=== PATIENT | female | born 1950 | race Caucasian/White ===

== ENCOUNTER 2024-01-27 17:42 | Inpatient (IN) | payer MEDICARE ==
[~2024-01-27] VITALS: Ht 167.6 cm; Wt 113.0 kg
[~2024-01-27 17:42] MED LIST: ALD25T PO; FURO-150 PO; GLIM4TAB7 PO; GLIP-127 PO; LEVO200T43 PO; LISI-222 PO; METF500T PO; PAM25C PO; SYN0.025T PO; ZOC40T PO
[2024-01-27] MEDS: furosemide 10 MG/1 ML 10ml inj IV ONE (18:03)
[2024-01-27] MEDS: furosemide 40mg/4ml inj IV ONE (18:20)
[2024-01-27] MEDS: albuterol 2.5 MG/3 ML nebule NEB PRN (18:21)
[2024-01-27] MEDS: ipratropium 0.5 MG/2.5ML nebule IH ONE (18:21)
[2024-01-27 18:23] VITALS: PULSE 97; RESP 23; O2SAT 97
[2024-01-27] MEDS: nitroGLYCERIN 0.2mg/hour patch TD ONE (18:28)
[2024-01-27] MEDS: aspirin 81mg tab.chew PO ONE (18:29)
[2024-01-27] MEDS: pantoprazole 40 MG vial IV ONE (18:29)
[2024-01-27] MEDS: methylPREDNISolone sod succ 125mg/2ml vial IV ONE (18:30)
[2024-01-27 18:33] VITALS: PULSE 100; RESP 56; O2SAT 97
[2024-01-27 18:35] VITALS: PULSE 97; RESP 27; O2SAT 97
[2024-01-27 18:52] LABS: APTT 29 SECONDS (22-32); D-DIMER 1.39 MG/L FEU (0-0.50)
[2024-01-27 18:53] LABS: INR 0.9 INR
[2024-01-27 18:58] LABS: ALBUMIN 3.1 G/DL (3.4-5.0); ANION GAP 14 (8-16); BLOOD UREA NITROGEN 53 MG/DL (7-18); BUN/CREATININE RATIO 29.6 (10.0-20.0); CALCIUM 9.2 MG/DL (8.5-10.1); CHLORIDE 102 MMOL/L (99-107); CREATININE 1.79 MG/DL (0.40-0.90); DIGOXIN 0.2 NG/ML (0.9-1.9); GLUCOSE 156 MG/DL (70-104); LACTATE DEHYDROGENASE 257 U/L (81-234); LIPASE 131 U/L (16-77); MAGNESIUM 2.5 MG/DL (1.5-2.4); PHOSPHORUS 4.4 MG/DL (2.3-4.5); POTASSIUM 4.6 MMOL/L (3.5-5.1); PRO BRAIN NATRIURETIC PEPTIDE 717 PG/ML (0-450); SODIUM 143 MMOL/L (135-145); TOTAL CARBON DIOXIDE 26.7 MMOL/L (24-32); eCRCL 25 ML/MIN; eGFR 28 ML/MIN
[2024-01-27 19:53] LABS: BASOPHILS # (AUTO) 0.1 X10'3 (0-0.2); BASOPHILS % (AUTO) 0.6 % (0-1); EOSINOPHILS # (AUTO) 0.1 X10'3 (0-0.9); EOSINOPHILS % (AUTO) 0.6 % (0-6); HEMATOCRIT 38.2 % (35.0-45.0); HEMOGLOBIN 12.6 g/dl (12.0-16.0); LYMPHOCYTES # (AUTO) 0.4 X10'3 (1.1-4.8); LYMPHOCYTES % (AUTO) 2.4 % (21-51); MEAN CORPUSCULAR HEMOGLOBIN 31.5 PG (27.0-31.0); MEAN CORPUSCULAR VOLUME 95.2 FL (78-98); MEAN PLATELET VOLUME 7.4 FL (7.4-10.4); MONOCYTES # (AUTO) 0.6 X10'3 (0-0.9); MONOCYTES % (AUTO) 4.3 % (2-12); NEUTROPHILS # (AUTO) 13.7 X10'3 (1.8-7.7); NEUTROPHILS % (AUTO) 92.1 % (42-75); PLATELET COUNT 176 X10'3 (140-440); RED BLOOD COUNT 4.01 X10'6 (4.20-5.60); RED CELL DISTRIBUTION WIDTH 15.1 % (11.5-14.5); WHITE BLOOD COUNT 14.9 X10'3 (4.5-11.0)
[2024-01-27] MEDS ORDERED: potassium Cl 40MEQ/1/2NS 520ml 520 ML IV PRN (20:00)
[2024-01-27] MEDS ORDERED: potassium Cl 20 mEq SR tablet PO PRN ×2 (20:00)
[2024-01-27] MEDS ORDERED: magnesium Cl slow-release 64mg tablet PO PRN (20:00)
[2024-01-27] MEDS ORDERED: acetaminophen 325mg tablet PO PRN (20:00)
[2024-01-27] MEDS ORDERED: magnesium 4gm in 100ml NS 100 ML IV PRN (20:00)
[2024-01-27] MEDS ORDERED: magnesium hydroxide 30ml (MOM) UD suspension PO PRN (20:00)
[2024-01-27] MEDS ORDERED: mag hydrox/Alum hydrox/simeth 30ml oral suspension PO PRN (20:00)
[2024-01-27] MEDS ORDERED: ondansetron/PF 4mg/2ml inj IV PRN (20:00)
[2024-01-27] MEDS ORDERED: magnesium 2GM in 50ml NS 50 ML IV PRN (20:00)
[2024-01-27] MEDS: K and/or MAG REPLACEMENT MC SCH (20:00)
[2024-01-27] MEDS ORDERED: acetaminophen 650mg rectal suppository RC PRN (20:00)
[2024-01-27] MEDS: docusate sod 100mg capsule PO SCH (20:00)
[2024-01-27] MEDS ORDERED: dextrose 50%-water 50ml dispensing syringe IV PRN ×2 (20:05)
[2024-01-27] MEDS ORDERED: DEXTROSE 15 GM of carb/4 tabs (each vial/BOTTLE has 4 tablets) PO PRN ×2 (20:05)
[2024-01-27] MEDS ORDERED: glucagon, human recombinant 1mg kit SUBCUT PRN (20:05)
[2024-01-27] MEDS: MESSAGE TO PHARMACY PO ONE (20:18)
[2024-01-27 20:25] VITALS: PULSE 97; RESP 27; O2SAT 97
[2024-01-27] MEDS: levoFLOXACIN-Levaquin 500mg/D5 100 ML IV SCH (20:40)
[2024-01-27] MEDS: insulin glargine (Lantus) pen - multi-dose SQ SCH (21:00)
[2024-01-27 21:34] LABS: HEMOGLOBIN A1C 7.4 % (4.5-6.2)
[2024-01-28] VITALS (17 sets, daily range): BP systolic 102–139; BP diastolic 43–70; PULSE 83–113; RESP 13–27; TEMP 97.5–98.1; O2SAT 83–96
[2024-01-28] MEDS: ipratropium/albuterol 3ml nebule NEB SCH ×2 (00:01→11:06)
[2024-01-28 04:20] LABS: BASOPHILS % (AUTO) 0.3 % (0-1); EOSINOPHILS % (AUTO) 0 % (0-6); LYMPHOCYTES # (AUTO) 0.4 X10'3 (1.1-4.8); MONOCYTES # (AUTO) 0.1 X10'3 (0-0.9); MONOCYTES % (AUTO) 0.9 % (2-12); NEUTROPHILS # (AUTO) 11.6 X10'3 (1.8-7.7); WHITE BLOOD COUNT 12.1 X10'3 (4.5-11.0)
[2024-01-28 04:25] LABS: ALBUMIN 2.8 G/DL (3.4-5.0); ANION GAP 8 (8-16); BLOOD UREA NITROGEN 60 MG/DL (7-18); BUN/CREATININE RATIO 30.8 (10.0-20.0); CALCIUM 9.2 MG/DL (8.5-10.1); CHLORIDE 101 MMOL/L (99-107); CHOL/HDL RATIO 2.6 (0.00-4.99); CHOLESTEROL 182 MG/DL (0-200); CREATININE 1.95 MG/DL (0.40-0.90); GLUCOSE 265 MG/DL (70-104); HDL CHOLESTEROL 71 MG/DL (35-60); LDL CHOLESTEROL 79 MG/DL (50-100); POTASSIUM 4.8 MMOL/L (3.5-5.1); SODIUM 136 MMOL/L (135-145); THYROID STIMULATING HORMONE 4.29 ulU/ml (0.34-4.50); TOTAL CARBON DIOXIDE 26.6 MMOL/L (24-32); TRIGLYCERIDES 65 MG/DL (20-135); eCRCL 23 ML/MIN; eGFR 25 ML/MIN
[2024-01-28 04:50] LABS: HEMATOCRIT 35.9 % (35.0-45.0); LYMPHOCYTES % (AUTO) 3.1 % (21-51); MEAN CORPUSCULAR HEMOGLOBIN 31.6 PG (27.0-31.0); MEAN CORPUSCULAR HGB CONC 33.6 g/dL (33.0-36.5); MEAN CORPUSCULAR VOLUME 94.2 FL (78-98); NEUTROPHILS % (AUTO) 95.7 % (42-75); PLATELET COUNT 180 X10'3 (140-440)
[2024-01-28] MEDS: enoxaparin 40mg/0.4ml syringe SUBCUT SCH (08:18)
[2024-01-28] MEDS: methylPREDNISolone sod succ 125mg/2ml vial IV SCH (08:22)
[2024-01-28] MEDS ORDERED: ipratropium/albuterol 3ml nebule NEB PRN (08:55)
[2024-01-28] MEDS: furosemide 10 MG/1 ML 10ml inj IV SCH (09:05)
[2024-01-28] MEDS: CefTRIAXone/D5W-Rocephin 1gm 50 ML IV ONE (10:34)
[2024-01-28] MEDS: insulin Lispro (HumaLOG) vial - multi-dose SQ SCH (10:35)
[2024-01-28] MEDS ORDERED: ALLO100T PO (12:18)
[2024-01-28] MEDS ORDERED: ERGO400C PO (12:18)
[2024-01-28] MEDS ORDERED: SEMA2PEN SUBCUT (12:18)
[2024-01-28] MEDS ORDERED: INSU100I8 SQ (12:18)
[2024-01-28] MEDS ORDERED: KRIL1CAP40 PO (12:18)
[2024-01-28] MEDS ORDERED: INSU200I4 SQ (12:18)
[2024-01-28] MEDS ORDERED: UBID50TA3 PO (12:18)
[2024-01-28] MEDS ORDERED: ATEN50TA8 PO (12:18)
[2024-01-28] MEDS ORDERED: ASPI81TA52 PO (12:18)
[2024-01-28 13:31] LABS: ALANINE AMINOTRANSFERASE 77 U/L (12-78); ALBUMIN 2.8 G/DL (3.4-5.0); ALBUMIN/GLOBULIN RATIO 0.7 (1.1-1.5); ALKALINE PHOSPHATASE 361 IU/L (46-116); ANION GAP 7 (8-16); ASPARTATE AMINO TRANSFERASE 43 U/L (10-37); BILIRUBIN,TOTAL 0.5 MG/DL (0.1-1.0); BLOOD UREA NITROGEN 64 MG/DL (7-18); BUN/CREATININE RATIO 29.8 (10.0-20.0); CHLORIDE 102 MMOL/L (99-107); CREATININE 2.15 MG/DL (0.40-0.90); GLUCOSE 342 MG/DL (70-104); LACTATE DEHYDROGENASE 202 U/L (81-234); LIPASE 65 U/L (16-77); MAGNESIUM 2.3 MG/DL (1.5-2.4); SODIUM 137 MMOL/L (135-145); TOTAL CARBON DIOXIDE 27.6 MMOL/L (24-32); TOTAL PROTEIN 6.9 G/DL (6.4-8.2); eCRCL 21 ML/MIN; eGFR 22 ML/MIN
[2024-01-28] MEDS: bumetanide 0.25mg/ml 4ml vial IV SCH (21:11)
[2024-01-28] MEDS: heparin, porcine 5000 units/ml vial SQ SCH (21:15)
[2024-01-28] MEDS: VANCOMYCIN 750MG IV in NS 250 ML IV SCH (22:07)
[2024-01-28] MEDS ORDERED: morphine 2 MG/ML inj. syringe IV PRN (23:40)
[2024-01-28] MEDS ORDERED: HYDROcodone/acetaminophen 5mg/325mg tablet PO PRN (23:40)
[2024-01-29] VITALS (16 sets, daily range): BP systolic 123–142; BP diastolic 65–78; PULSE 94–107; RESP 16–24; TEMP 97.4–98.4; O2SAT 91–98
[2024-01-29] MEDS ORDERED: furosemide 10 MG/1 ML 10ml inj IV SCH (08:00)
[2024-01-29 08:29] LABS: BASOPHILS % (AUTO) 0.2 % (0-1); EOSINOPHILS % (AUTO) 0 % (0-6); HEMATOCRIT 34.3 % (35.0-45.0); HEMOGLOBIN 11.4 g/dl (12.0-16.0); LYMPHOCYTES # (AUTO) 0.6 X10'3 (1.1-4.8); LYMPHOCYTES % (AUTO) 2.9 % (21-51); MEAN CORPUSCULAR HEMOGLOBIN 31.7 PG (27.0-31.0); MEAN CORPUSCULAR HGB CONC 33.2 g/dL (33.0-36.5); MEAN CORPUSCULAR VOLUME 95.4 FL (78-98); MEAN PLATELET VOLUME 8.2 FL (7.4-10.4); MONOCYTES # (AUTO) 0.7 X10'3 (0-0.9); MONOCYTES % (AUTO) 3.5 % (2-12); NEUTROPHILS # (AUTO) 18.1 X10'3 (1.8-7.7); NEUTROPHILS % (AUTO) 93.4 % (42-75); PLATELET COUNT 203 X10'3 (140-440); RED BLOOD COUNT 3.59 X10'6 (4.20-5.60); WHITE BLOOD COUNT 19.4 X10'3 (4.5-11.0)
[2024-01-29 08:39] LABS: ALANINE AMINOTRANSFERASE 66 U/L (12-78); ALBUMIN 2.8 G/DL (3.4-5.0); ALBUMIN/GLOBULIN RATIO 0.7 (1.1-1.5); ALKALINE PHOSPHATASE 288 IU/L (46-116); ANION GAP 11 (8-16); ASPARTATE AMINO TRANSFERASE 33 U/L (10-37); BILIRUBIN,TOTAL 0.5 MG/DL (0.1-1.0); BLOOD UREA NITROGEN 68 MG/DL (7-18); BUN/CREATININE RATIO 30.5 (10.0-20.0); CALCIUM 9.1 MG/DL (8.5-10.1); CHLORIDE 103 MMOL/L (99-107); CREATININE 2.23 MG/DL (0.40-0.90); GLUCOSE 348 MG/DL (70-104); POTASSIUM 5.5 MMOL/L (3.5-5.1); SODIUM 138 MMOL/L (135-145); TOTAL CARBON DIOXIDE 23.9 MMOL/L (24-32); TOTAL PROTEIN 6.9 G/DL (6.4-8.2); eCRCL 20 ML/MIN; eGFR 21 ML/MIN
[2024-01-29] MEDS: CefTRIAXone/D5W-Rocephin 1gm 50 ML IV SCH (09:29)
[2024-01-29] MEDS: nortriptyline 25mg capsule PO SCH (20:45)
[2024-01-29] MEDS: temazepam 15mg capsule PO PRN (23:01)
[2024-01-30] VITALS (17 sets, daily range): BP systolic 105–155; BP diastolic 73–82; PULSE 85–114; RESP 16–24; TEMP 97.3–98.3; O2SAT 3–99
[2024-01-30 00:23] LABS: BILIRUBIN,URINE NEGATIVE (Neg); COLOR,URINE STRAW (Yellow); GLUCOSE, URINE NEGATIVE (Neg); KETONES,URINE NEGATIVE (Neg); LEUKOCYTE ESTERASE ,URINE NEGATIVE (Neg); NITRITES, URINE NEGATIVE (Neg); OCCULT BLOOD,URINE TRACE-INTACT (Neg); PH,URINE 5.5 (4.8-8.0); PROTEIN,URINE NEGATIVE (Neg); UROBILINOGEN,URINE 0.2 E.U/dL (0.2-1.0)
[2024-01-30 00:24] LABS: UA COLLECTION TYPE NON-SPECIFIED
[2024-01-30 00:31] LABS: CLARITY,URINE CLEAR (Clear)
[2024-01-30 00:33] LABS: BACTERIA,URINE NONE SEEN /HPF (Neg); MUCUS STRANDS FEW /LPF (Neg); RBC,URINE 0-2 /HPF (0-2); SQUAMOUS EPITHELIAL CELL,UR FEW /LPF (FEW); WBC,URINE NONE SEEN /HPF (0-4)
[2024-01-30 00:37] LABS: TOTAL PROTEIN,URINE RANDOM 7.1 MG/DL
[2024-01-30 01:02] LABS: UA EOSINOPHILS NO EOS /HPF
[2024-01-30 06:44] LABS: BASOPHILS # (AUTO) 0.1 X10'3 (0-0.2); BASOPHILS % (AUTO) 0.5 % (0-1); EOSINOPHILS % (AUTO) 0 % (0-6); HEMATOCRIT 35.9 % (35.0-45.0); HEMOGLOBIN 11.7 g/dl (12.0-16.0); LYMPHOCYTES # (AUTO) 0.7 X10'3 (1.1-4.8); LYMPHOCYTES % (AUTO) 4.7 % (21-51); MEAN CORPUSCULAR HEMOGLOBIN 31.4 PG (27.0-31.0); MEAN CORPUSCULAR HGB CONC 32.7 g/dL (33.0-36.5); MEAN PLATELET VOLUME 7.9 FL (7.4-10.4); MONOCYTES # (AUTO) 0.6 X10'3 (0-0.9); MONOCYTES % (AUTO) 4.3 % (2-12); NEUTROPHILS # (AUTO) 12.8 X10'3 (1.8-7.7); NEUTROPHILS % (AUTO) 90.5 % (42-75); PLATELET COUNT 216 X10'3 (140-440); RED BLOOD COUNT 3.74 X10'6 (4.20-5.60); RED CELL DISTRIBUTION WIDTH 14.9 % (11.5-14.5); WHITE BLOOD COUNT 14.1 X10'3 (4.5-11.0)
[2024-01-30 07:45] LABS: ALANINE AMINOTRANSFERASE 65 U/L (12-78); ALBUMIN 2.9 G/DL (3.4-5.0); ALBUMIN/GLOBULIN RATIO 0.7 (1.1-1.5); ALKALINE PHOSPHATASE 294 IU/L (46-116); ANION GAP 11 (8-16); ASPARTATE AMINO TRANSFERASE 37 U/L (10-37); BILIRUBIN,TOTAL 0.5 MG/DL (0.1-1.0); BLOOD UREA NITROGEN 72 MG/DL (7-18); BUN/CREATININE RATIO 31.7 (10.0-20.0); CALCIUM 8.8 MG/DL (8.5-10.1); CHLORIDE 104 MMOL/L (99-107); CREATININE 2.27 MG/DL (0.40-0.90); GLUCOSE 300 MG/DL (70-104); POTASSIUM 5.2 MMOL/L (3.5-5.1); SODIUM 141 MMOL/L (135-145); TOTAL CARBON DIOXIDE 26.1 MMOL/L (24-32); TOTAL PROTEIN 7.2 G/DL (6.4-8.2); eCRCL 20 ML/MIN; eGFR 21 ML/MIN
[2024-01-30 08:14] LABS: ABG BASE EXCESS -0.7 mmol/L (-2.0-2.0); ABG HCO3 24.6 mmol/L (22.0-26.0); ABG PCO2 (T) 42.7 mmHg (32.0-45.0); ABG PH (T) 7.378 (7.350-7.450); ABG PO2 (T) 93.2 mmHg (75.0-100.0); ALLEN'S TEST POSITIVE; FCOHb 0.7 % (0.0-3.9); FMetHb 0.2 % (0.0-1.5); FO2Hb 96.1 % (94-97); MODE MASK - BIPAP; PATIENT TEMPERATURE 36.8; RESPIRATORY RATE 10 b/min; TOTAL HEMOGLOBIN 13.5 G/dl (12.0-16.0)
[2024-01-30 08:25] LABS: ABG BASE EXCESS -3.8 mmol/L (-2.0-2.0); ABG HCO3 23.8 mmol/L (22.0-26.0); ABG OXYGEN SATURATION 94.6 % (94-97); ABG PCO2 (T) 53.5 mmHg (32.0-45.0); ABG PH (T) 7.266 (7.350-7.450); ABG PO2 (T) 82.5 mmHg (75.0-100.0); ALLEN'S TEST POSITIVE; FHHb 5.3 % (0.0-5.0); FLOW 8 L/min; FMetHb 0.2 % (0.0-1.5); FO2Hb 93.5 % (94-97); MODE MASK - NRB; TOTAL HEMOGLOBIN 13.9 G/dl (12.0-16.0)
[2024-01-31] VITALS (16 sets, daily range): BP systolic 129–162; BP diastolic 69–87; PULSE 85–114; RESP 16–24; TEMP 97–98.2; O2SAT 95–100
[2024-01-31 07:58] LABS: BASOPHILS % (AUTO) 0.2 % (0-1); EOSINOPHILS % (AUTO) 0 % (0-6); HEMATOCRIT 34.9 % (35.0-45.0); HEMOGLOBIN 11.8 g/dl (12.0-16.0); LYMPHOCYTES # (AUTO) 0.4 X10'3 (1.1-4.8); LYMPHOCYTES % (AUTO) 3.8 % (21-51); MEAN CORPUSCULAR HEMOGLOBIN 32.2 PG (27.0-31.0); MEAN CORPUSCULAR HGB CONC 33.7 g/dL (33.0-36.5); MEAN CORPUSCULAR VOLUME 95.6 FL (78-98); MEAN PLATELET VOLUME 8.3 FL (7.4-10.4); MONOCYTES # (AUTO) 0.3 X10'3 (0-0.9); MONOCYTES % (AUTO) 2.4 % (2-12); NEUTROPHILS # (AUTO) 9.9 X10'3 (1.8-7.7); NEUTROPHILS % (AUTO) 93.6 % (42-75); PLATELET COUNT 183 X10'3 (140-440); RED BLOOD COUNT 3.65 X10'6 (4.20-5.60); RED CELL DISTRIBUTION WIDTH 15.1 % (11.5-14.5); WHITE BLOOD COUNT 10.6 X10'3 (4.5-11.0)
[2024-01-31 08:47] LABS: ALANINE AMINOTRANSFERASE 74 U/L (12-78); ALBUMIN 2.7 G/DL (3.4-5.0); ALBUMIN/GLOBULIN RATIO 0.7 (1.1-1.5); ALKALINE PHOSPHATASE 262 IU/L (46-116); ANION GAP 10 (8-16); ASPARTATE AMINO TRANSFERASE 46 U/L (10-37); BILIRUBIN,TOTAL 0.4 MG/DL (0.1-1.0); BLOOD UREA NITROGEN 75 MG/DL (7-18); BUN/CREATININE RATIO 35.5 (10.0-20.0); CALCIUM 8.9 MG/DL (8.5-10.1); CHLORIDE 105 MMOL/L (99-107); CREATININE 2.11 MG/DL (0.40-0.90); GLUCOSE 289 MG/DL (70-104); POTASSIUM 5.7 MMOL/L (3.5-5.1); SODIUM 142 MMOL/L (135-145); TOTAL CARBON DIOXIDE 27.5 MMOL/L (24-32); TOTAL PROTEIN 6.7 G/DL (6.4-8.2); eCRCL 22 ML/MIN; eGFR 23 ML/MIN
[2024-01-31] MEDS ORDERED: FLUT1BLS4 INH (13:27)
[2024-01-31] MEDS ORDERED: AZIT500T9 PO (13:27)
[2024-01-31] MEDS ORDERED: METH4TAB81 PO (13:27)
[2024-01-31] MEDS ORDERED: BUME1TAB8 PO (13:27)
[2024-01-31] MEDS ORDERED: ALBU18HF2 IH (13:27)
[2024-01-31] MEDS: VANCOMYCIN LEVEL IJ ONE (20:44)
[2024-02-01] VITALS (8 sets, daily range): BP systolic 119–139; BP diastolic 61–87; PULSE 81–114; RESP 14–22; TEMP 97.5–98.6; O2SAT 92–98
[2024-02-01 06:34] LABS: BASOPHILS % (AUTO) 0.1 % (0-1); EOSINOPHILS % (AUTO) 0 % (0-6); HEMATOCRIT 34.7 % (35.0-45.0); HEMOGLOBIN 11.5 g/dl (12.0-16.0); LYMPHOCYTES # (AUTO) 0.4 X10'3 (1.1-4.8); LYMPHOCYTES % (AUTO) 3.8 % (21-51); MEAN CORPUSCULAR HEMOGLOBIN 31.6 PG (27.0-31.0); MEAN CORPUSCULAR HGB CONC 33.2 g/dL (33.0-36.5); MEAN CORPUSCULAR VOLUME 95.2 FL (78-98); MEAN PLATELET VOLUME 8.1 FL (7.4-10.4); MONOCYTES # (AUTO) 0.3 X10'3 (0-0.9); MONOCYTES % (AUTO) 3.4 % (2-12); NEUTROPHILS # (AUTO) 9.5 X10'3 (1.8-7.7); NEUTROPHILS % (AUTO) 92.7 % (42-75); PLATELET COUNT 186 X10'3 (140-440); RED BLOOD COUNT 3.64 X10'6 (4.20-5.60); RED CELL DISTRIBUTION WIDTH 14.8 % (11.5-14.5); WHITE BLOOD COUNT 10.2 X10'3 (4.5-11.0)
[2024-02-01 07:12] LABS: ALANINE AMINOTRANSFERASE 186 U/L (12-78); ALBUMIN 2.7 G/DL (3.4-5.0); ALBUMIN/GLOBULIN RATIO 0.7 (1.1-1.5); ALKALINE PHOSPHATASE 259 IU/L (46-116); ANION GAP 9 (8-16); ASPARTATE AMINO TRANSFERASE 136 U/L (10-37); BILIRUBIN,TOTAL 0.4 MG/DL (0.1-1.0); BLOOD UREA NITROGEN 69 MG/DL (7-18); BUN/CREATININE RATIO 37.9 (10.0-20.0); CALCIUM 8.7 MG/DL (8.5-10.1); CHLORIDE 103 MMOL/L (99-107); CREATININE 1.82 MG/DL (0.40-0.90); GLUCOSE 335 MG/DL (70-104); POTASSIUM 5.1 MMOL/L (3.5-5.1); SODIUM 139 MMOL/L (135-145); TOTAL CARBON DIOXIDE 27.1 MMOL/L (24-32); TOTAL PROTEIN 6.5 G/DL (6.4-8.2); eCRCL 25 ML/MIN; eGFR 27 ML/MIN
[2024-02-01] MEDS: methylPREDNISolone sod succ/PF 40mg inj. IV SCH (08:39)
[2024-02-01] MEDS ORDERED: vancomycin/NS 1 GM ADD-VANTAGE 250 ML IV SCH (21:00)
[2024-02-04] MEDS ORDERED: VANCOMYCIN LEVEL IV ONE (20:30)
== END 2024-02-01 17:50 | disposition home health service (06) | DRG 602 ==
LOC: ER 17:43 → ED HOLD 20:04 → PCU 3S 01-28 05:30
PROVIDERS: ADMIT Surgery Surgical Critical Care; ATTEND Family Medicine
PROC: 5A09357 Assistance with Respiratory Ventilation, Less than 24 Consecutive Hours, Continuous Positive Airway Pressure (ICD-10-PCS; principal; 2024-01-27)
PROC: CB1YYZZ Planar Nuclear Medicine Imaging of Respiratory System using Other Radionuclide (ICD-10-PCS; 2024-01-28)
DX: L03.115 Cellulitis of right lower limb (principal); I50.33 Acute on chronic diastolic (congestive) heart failure; J96.01 Acute respiratory failure with hypoxia; N17.0 Acute kidney failure with tubular necrosis; J96.02 Acute respiratory failure with hypercapnia; I13.0 Hypertensive heart and chronic kidney disease with heart failure and stage 1 through stage 4 chronic kidney disease, or unspecified chronic kidney disease; J44.1 Chronic obstructive pulmonary disease with (acute) exacerbation; E87.29 Other acidosis; J44.0 Chronic obstructive pulmonary disease with (acute) lower respiratory infection; Z20.822 Contact with and (suspected) exposure to COVID-19; Z96.652 Presence of left artificial knee joint; E11.22 Type 2 diabetes mellitus with diabetic chronic kidney disease; E78.5 Hyperlipidemia, unspecified; E66.01 Morbid (severe) obesity due to excess calories; J20.9 Acute bronchitis, unspecified; Z68.39 Body mass index [BMI] 39.0-39.9, adult; Z79.84 Long term (current) use of oral hypoglycemic drugs; Z79.899 Other long term (current) drug therapy; Z87.891 Personal history of nicotine dependence; Z92.21 Personal history of antineoplastic chemotherapy; Z85.43 Personal history of malignant neoplasm of ovary; Z85.3 Personal history of malignant neoplasm of breast
CPT/HCPCS: 36415; 36600; 71045; 71250; 76770; 78582; 80048; 80053; 80061; 80162; 80202; 81001; 82570; 82803; 82948; 83036; 83605; 83615; 83690; 83735; 83880; 83935; 84100; 84133; 84156; 84300; 84443; 84484; 85018; 85025; 85379; 85610; 85730; 87040; 87081; 87207; 87502; 87503; 87811; 93005; 93306; 93970; 94640; 94660; 94760; 96374; 96375; 97116; 97161; 97530; 99285; A4615; A6212; A6213; A6222; A6223; A6258; A6446; A6449; A9539; A9540; C9113; G0378; J0696; J1644; J1650; J1815; J1940; J1956; J2920; J2930; J3370; J3490; J7040; J7050

== ENCOUNTER 2024-06-09 17:22 | Inpatient (IN) | payer MEDICARE ==
[~2024-06-09] VITALS: Ht 167.6 cm; Wt 108.0 kg
[~2024-06-09 17:22] MED LIST changes: -ALD25T PO; +ALLO100T PO; +ASPI81TA52 PO; +ATEN50TA8 PO; +ERGO400C PO; +FURO-149 PO; -FURO-150 PO; -GLIM4TAB7 PO; -GLIP-127 PO; +INSU100I8 SQ; +INSU200I4 SQ; +KRIL1CAP40 PO; -LEVO200T43 PO; -METF500T PO; +SEMA2PEN SUBCUT; +UBID50TA3 PO
[2024-06-09 18:40] LABS: ALBUMIN 3.5 G/DL (3.4-5.0); ANION GAP 5 (8-16); BLOOD UREA NITROGEN 50 MG/DL (7-18); BUN/CREATININE RATIO 28.6 (10.0-20.0); CALCIUM 9.7 MG/DL (8.5-10.1); CHLORIDE 97 MMOL/L (99-107); CREATININE 1.75 MG/DL (0.40-0.90); GLUCOSE 131 MG/DL (70-104); PRO BRAIN NATRIURETIC PEPTIDE 764 PG/ML (0-450); SODIUM 137 MMOL/L (135-145); TOTAL CARBON DIOXIDE 34.8 MMOL/L (24-32); eCRCL 26 ML/MIN; eGFR 28 ML/MIN
[2024-06-09 18:41] LABS: BASOPHILS % (AUTO) 0 % (0-1); EOSINOPHILS # (AUTO) 0.4 X10'3 (0-0.9); EOSINOPHILS % (AUTO) 1.7 % (0-6); HEMATOCRIT 34.9 % (35.0-45.0); HEMOGLOBIN 11.3 g/dl (12.0-16.0); LYMPHOCYTES # (AUTO) 0.4 X10'3 (1.1-4.8); LYMPHOCYTES % (AUTO) 1.4 % (21-51); MEAN CORPUSCULAR HEMOGLOBIN 29.3 PG (27.0-31.0); MEAN CORPUSCULAR HGB CONC 32.3 g/dL (33.0-36.5); MEAN CORPUSCULAR VOLUME 90.7 FL (78-98); MEAN PLATELET VOLUME 7.5 FL (7.4-10.4); MONOCYTES # (AUTO) 0.5 X10'3 (0-0.9); MONOCYTES % (AUTO) 1.9 % (2-12); NEUTROPHILS # (AUTO) 23.6 X10'3 (1.8-7.7); PLATELET COUNT 151 X10'3 (140-440); RED BLOOD COUNT 3.85 X10'6 (4.20-5.60); RED CELL DISTRIBUTION WIDTH 14.1 % (11.5-14.5); WHITE BLOOD COUNT 24.8 X10'3 (4.5-11.0)
[2024-06-09 18:46] LABS: POTASSIUM 4.9 MMOL/L (3.5-5.1)
[2024-06-09] MEDS: furosemide 40mg/4ml inj IV ONE (18:49)
[2024-06-09] MEDS: furosemide 10 MG/1 ML 10ml inj IV ONE (18:50)
[2024-06-09 18:55] LABS: ABG BASE EXCESS 7.4 mmol/L (-2.0-2.0); ABG HCO3 34.5 mmol/L (22.0-26.0); ABG OXYGEN SATURATION 87.2 % (94-97); ABG PCO2 (T) 60.9 mmHg (32.0-45.0); ABG PH (T) 7.371 (7.350-7.450); ABG PO2 (T) 54.4 mmHg (75.0-100.0); ALLEN'S TEST Modified; FCOHb 0.5 % (0.0-3.9); FHHb 12.7 % (0.0-5.0); FLOW 4 L/min; FMetHb 0.3 % (0.0-1.5); FO2Hb 86.5 % (94-97); MODE NASAL CANNULA; TOTAL HEMOGLOBIN 12.3 G/dl (12.0-16.0)
[2024-06-09 19:00] LABS: PLATELET ESTIMATE NORMAL; TOTAL CELLS COUNTED 100
[2024-06-09] MEDS: CefTRIAXone/D5W-Rocephin 1gm 50 ML IV ONE (19:28)
[2024-06-09] MEDS ORDERED: FURO40TA4 PO (19:51)
[2024-06-09] MEDS ORDERED: NORT25CA PO (19:51)
[2024-06-09] MEDS ORDERED: LISI2.5T14 PO (19:51)
[2024-06-09] MEDS: azithromycin/NS 500mg/250ml 250 ML IV ONE (19:53)
[2024-06-09] MEDS ORDERED: potassium Cl 40MEQ/1/2NS 520ml 520 ML IV PRN (20:15)
[2024-06-09] MEDS ORDERED: mag hydrox/Alum hydrox/simeth 30ml oral suspension PO PRN (20:15)
[2024-06-09] MEDS ORDERED: ondansetron/PF 4mg/2ml inj IV PRN (20:15)
[2024-06-09] MEDS ORDERED: magnesium Cl slow-release 64mg tablet PO PRN (20:15)
[2024-06-09] MEDS ORDERED: magnesium sulf-water 4G/100mL 100 ML IV PRN (20:15)
[2024-06-09] MEDS ORDERED: potassium Cl 20 mEq SR tablet PO PRN ×2 (20:15)
[2024-06-09] MEDS ORDERED: acetaminophen 325mg tablet PO PRN (20:15)
[2024-06-09] MEDS: INSULIN LISPRO 100 UNIT/ML INSULN.PEN MULTI-DOSE SQ SCH (21:00)
[2024-06-09 21:04] VITALS: PULSE 81; RESP 18; O2SAT 0
[2024-06-09] MEDS: ipratropium/albuterol 3ml nebule NEB PRN (21:06)
[2024-06-09 21:07] VITALS: PULSE 81; RESP 18; O2SAT 96
[2024-06-09 21:13] VITALS: PULSE 89; RESP 16
[2024-06-09] MEDS: nortriptyline 25mg capsule PO SCH (21:26)
[2024-06-09] MEDS: simvastatin 20mg tablet PO SCH (21:26)
[2024-06-09 23:00] LABS: C-REACTIVE PROTEIN 2.85 MG/DL (0.0-0.5)
[2024-06-09] MEDS ORDERED: dextrose 50%-water 50ml dispensing syringe IV PRN ×2 (23:05)
[2024-06-09] MEDS ORDERED: DEXTROSE 15 GM of carb/4 tabs (each vial/BOTTLE has 4 tablets) PO PRN (23:05)
[2024-06-10] VITALS (12 sets, daily range): BP systolic 98–113; BP diastolic 44–58; PULSE 64–78; RESP 14–20; TEMP 97.3–98.4; O2SAT 93–99
[2024-06-10] MEDS: piperacillin/tazo 3.375gm/50ml 50 ML IV SCH (00:56)
[2024-06-10 03:25] LABS: BASOPHILS % (AUTO) 0.1 % (0-1); EOSINOPHILS % (AUTO) 0.1 % (0-6); HEMATOCRIT 29.3 % (35.0-45.0); HEMOGLOBIN 9.3 g/dl (12.0-16.0); LYMPHOCYTES # (AUTO) 0.5 X10'3 (1.1-4.8); LYMPHOCYTES % (AUTO) 1.7 % (21-51); MEAN CORPUSCULAR HEMOGLOBIN 28.8 PG (27.0-31.0); MEAN CORPUSCULAR HGB CONC 31.7 g/dL (33.0-36.5); MEAN CORPUSCULAR VOLUME 90.9 FL (78-98); MEAN PLATELET VOLUME 7.9 FL (7.4-10.4); MONOCYTES # (AUTO) 0.8 X10'3 (0-0.9); MONOCYTES % (AUTO) 3.2 % (2-12); NEUTROPHILS # (AUTO) 25.3 X10'3 (1.8-7.7); NEUTROPHILS % (AUTO) 94.9 % (42-75); PLATELET COUNT 143 X10'3 (140-440); RED BLOOD COUNT 3.22 X10'6 (4.20-5.60); RED CELL DISTRIBUTION WIDTH 14.5 % (11.5-14.5)
[2024-06-10 03:31] LABS: WHITE BLOOD COUNT 26.6 X10'3 (4.5-11.0)
[2024-06-10 03:41] LABS: ALANINE AMINOTRANSFERASE 48 U/L (12-78); ALBUMIN 2.7 G/DL (3.4-5.0); ALBUMIN/GLOBULIN RATIO 0.7 (1.1-1.5); ALKALINE PHOSPHATASE 246 IU/L (46-116); ANION GAP 10 (8-16); ASPARTATE AMINO TRANSFERASE 55 U/L (10-37); BILIRUBIN,TOTAL 0.5 MG/DL (0.1-1.0); BLOOD UREA NITROGEN 51 MG/DL (7-18); BUN/CREATININE RATIO 23.1 (10.0-20.0); CALCIUM 8.6 MG/DL (8.5-10.1); CHLORIDE 92 MMOL/L (99-107); CREATININE 2.21 MG/DL (0.40-0.90); GLUCOSE 228 MG/DL (70-104); MAGNESIUM 1.8 MG/DL (1.5-2.4); POTASSIUM 4.9 MMOL/L (3.5-5.1); SODIUM 135 MMOL/L (135-145); TOTAL CARBON DIOXIDE 33.5 MMOL/L (24-32); TOTAL PROTEIN 6.7 G/DL (6.4-8.2); eCRCL 21 ML/MIN; eGFR 22 ML/MIN
[2024-06-10 03:51] LABS: TOTAL CELLS COUNTED 100
[2024-06-10 03:52] LABS: PLATELET ESTIMATE NORMAL
[2024-06-10] MEDS: normal saline 500ml IV soln 500 ML IV ONE (04:45)
[2024-06-10] MEDS: normal saline 1000ml 1,000 ML IV SCH (04:49)
[2024-06-10 05:33] LABS: BILIRUBIN,URINE NEGATIVE (Neg); CLARITY,URINE CLOUDY (Clear); COLOR,URINE YELLOW (Yellow); GLUCOSE, URINE NEGATIVE (Neg); KETONES,URINE NEGATIVE (Neg); LEUKOCYTE ESTERASE ,URINE MODERATE (Neg); NITRITES, URINE NEGATIVE (Neg); OCCULT BLOOD,URINE TRACE-INTACT (Neg); PH,URINE 5.5 (4.8-8.0); PROTEIN,URINE NEGATIVE (Neg); UROBILINOGEN,URINE 0.2 E.U/dL (0.2-1.0)
[2024-06-10 05:45] LABS: BACTERIA,URINE 1+ /HPF (Neg); MUCUS STRANDS NONE SEEN /LPF (Neg); RBC,URINE 0-2 /HPF (0-2); SQUAMOUS EPITHELIAL CELL,UR MANY /LPF (FEW); TRANSITIONAL EPI CELLS,URINE MODERATE /HPF; UA COLLECTION TYPE CLN CATCH MIDSTREAM; WBC CLUMPS,URINE MODERATE /HPF (NEGATIVE); WBC,URINE TNTC /HPF (0-4)
[2024-06-10] MEDS ORDERED: INSULIN LISPRO 100 UNIT/ML INSULN.PEN MULTI-DOSE SQ SCH (07:00)
[2024-06-10] MEDS ORDERED: nortriptyline 10mg capsule PO SCH (08:00)
[2024-06-10] MEDS ORDERED: furosemide 40mg tablet PO SCH (08:00)
[2024-06-10] MEDS ORDERED: furosemide 40mg/4ml inj IV SCH (08:00)
[2024-06-10] MEDS ORDERED: albuterol 2.5 MG/3 ML nebule NEB PRN (08:35)
[2024-06-10] MEDS: aspirin 81mg, enteric-coated 1 TAB TABLET.DR PO SCH (08:51)
[2024-06-10] MEDS: atenolol 50mg tablet PO SCH (08:51)
[2024-06-10] MEDS: azithromycin 250mg tablet PO SCH (08:52)
[2024-06-10] MEDS: levoTHYROXINE 25mcg tablet PO SCH (08:52)
[2024-06-10] MEDS: lisinopril 2.5mg tablet PO SCH (08:52)
[2024-06-10] MEDS: guaiFENesin ER 600mg tablet PO SCH (08:54)
[2024-06-10] MEDS: allopurinol 100mg tablet PO SCH (08:55)
[2024-06-10] MEDS: docusate sod 100mg capsule PO SCH (08:55)
[2024-06-10] MEDS: heparin, porcine 5000 units/ml vial SQ SCH (08:57)
[2024-06-10] MEDS: insulin glargine (Lantus) pen - multi-dose SQ SCH (09:20)
[2024-06-10] MEDS: ipratropium/albuterol 3ml nebule NEB SCH (10:31)
[2024-06-10] MEDS ORDERED: allopurinol 100mg tablet PO SCH (11:48)
[2024-06-10] MEDS: INSULIN LISPRO 100 UNIT/ML INSULN.PEN MULTI-DOSE SQ SCH (12:59)
[2024-06-10] MEDS: budesonide 0.5mg/2ml UD nebule IH SCH (18:58)
[2024-06-10] MEDS: HYDROcodone/acetaminophen 5mg/325mg tablet PO PRN (20:37)
[2024-06-10] MEDS: Melatonin 3mg tablet PO PRN (23:35)
[2024-06-11] VITALS (17 sets, daily range): BP systolic 97–117; BP diastolic 44–58; PULSE 68–82; RESP 15–20; TEMP 98.1–98.4; O2SAT 90–97
[2024-06-11 07:32] LABS: BASOPHILS # (AUTO) 0.1 X10'3 (0-0.2); BASOPHILS % (AUTO) 0.4 % (0-1); EOSINOPHILS # (AUTO) 0.3 X10'3 (0-0.9); EOSINOPHILS % (AUTO) 2.5 % (0-6); HEMATOCRIT 28.8 % (35.0-45.0); HEMOGLOBIN 9.3 g/dl (12.0-16.0); LYMPHOCYTES # (AUTO) 0.8 X10'3 (1.1-4.8); LYMPHOCYTES % (AUTO) 5.8 % (21-51); MEAN CORPUSCULAR HEMOGLOBIN 29.7 PG (27.0-31.0); MEAN CORPUSCULAR HGB CONC 32.3 g/dL (33.0-36.5); MEAN CORPUSCULAR VOLUME 91.8 FL (78-98); MEAN PLATELET VOLUME 8.2 FL (7.4-10.4); MONOCYTES # (AUTO) 1.1 X10'3 (0-0.9); MONOCYTES % (AUTO) 8.2 % (2-12); NEUTROPHILS # (AUTO) 11.1 X10'3 (1.8-7.7); NEUTROPHILS % (AUTO) 83.1 % (42-75); PLATELET COUNT 132 X10'3 (140-440); RED BLOOD COUNT 3.14 X10'6 (4.20-5.60); RED CELL DISTRIBUTION WIDTH 14.9 % (11.5-14.5); WHITE BLOOD COUNT 13.3 X10'3 (4.5-11.0)
[2024-06-11 07:55] LABS: ALANINE AMINOTRANSFERASE 65 U/L (12-78); ALBUMIN/GLOBULIN RATIO 0.8 (1.1-1.5); ALKALINE PHOSPHATASE 277 IU/L (46-116); ANION GAP 6 (8-16); ASPARTATE AMINO TRANSFERASE 69 U/L (10-37); BILIRUBIN,TOTAL 0.6 MG/DL (0.1-1.0); BLOOD UREA NITROGEN 76 MG/DL (7-18); BUN/CREATININE RATIO 27.3 (10.0-20.0); CHLORIDE 95 MMOL/L (99-107); CREATININE 2.78 MG/DL (0.40-0.90); GLUCOSE 106 MG/DL (70-104); MAGNESIUM 2.3 MG/DL (1.5-2.4); POTASSIUM 4.9 MMOL/L (3.5-5.1); SODIUM 134 MMOL/L (135-145); TOTAL CARBON DIOXIDE 33.3 MMOL/L (24-32); TOTAL PROTEIN 6.9 G/DL (6.4-8.2); eCRCL 16 ML/MIN; eGFR 17 ML/MIN
[2024-06-11] MEDS: allopurinol 100mg tablet PO SCH (08:05)
[2024-06-11 11:06] LABS: BASOPHILS # (AUTO) 0.1 X10'3 (0-0.2); BASOPHILS % (AUTO) 0.6 % (0-1); EOSINOPHILS # (AUTO) 0.3 X10'3 (0-0.9); EOSINOPHILS % (AUTO) 2.1 % (0-6); HEMATOCRIT 26.6 % (35.0-45.0); HEMOGLOBIN 8.6 g/dl (12.0-16.0); LYMPHOCYTES # (AUTO) 0.7 X10'3 (1.1-4.8); LYMPHOCYTES % (AUTO) 5.5 % (21-51); MEAN CORPUSCULAR HEMOGLOBIN 29.6 PG (27.0-31.0); MEAN CORPUSCULAR HGB CONC 32.4 g/dL (33.0-36.5); MEAN CORPUSCULAR VOLUME 91.3 FL (78-98); MEAN PLATELET VOLUME 7.8 FL (7.4-10.4); MONOCYTES # (AUTO) 0.8 X10'3 (0-0.9); MONOCYTES % (AUTO) 6.9 % (2-12); NEUTROPHILS # (AUTO) 10.2 X10'3 (1.8-7.7); NEUTROPHILS % (AUTO) 84.9 % (42-75); PLATELET COUNT 128 X10'3 (140-440); RED BLOOD COUNT 2.91 X10'6 (4.20-5.60); RED CELL DISTRIBUTION WIDTH 14.5 % (11.5-14.5)
[2024-06-11] MEDS: furosemide 40mg/4ml inj IV SCH (11:10)
[2024-06-11] MEDS: magnesium hydroxide 30ml (MOM) UD suspension PO PRN (11:29)
[2024-06-11] MEDS: bisacodyl 10mg suppository rectal RC PRN (11:29)
[2024-06-11] MEDS: nystatin 15 GM powder TP SCH (13:26)
[2024-06-12] VITALS (8 sets, daily range): BP systolic 102–139; BP diastolic 66–70; PULSE 80–86; RESP 16–18; TEMP 97.1–97.4; O2SAT 91–96
[2024-06-12] MEDS: DEXTROSE 15 GM of carb/4 tabs (each vial/BOTTLE has 4 tablets) PO PRN (05:24)
[2024-06-12 07:15] LABS: ALANINE AMINOTRANSFERASE 126 U/L (12-78); ALBUMIN 2.9 G/DL (3.4-5.0); ALBUMIN/GLOBULIN RATIO 0.7 (1.1-1.5); ALKALINE PHOSPHATASE 398 IU/L (46-116); ANION GAP 5 (8-16); ASPARTATE AMINO TRANSFERASE 149 U/L (10-37); BILIRUBIN,TOTAL 0.7 MG/DL (0.1-1.0); BLOOD UREA NITROGEN 82 MG/DL (7-18); BUN/CREATININE RATIO 30.3 (10.0-20.0); CALCIUM 9.2 MG/DL (8.5-10.1); CHLORIDE 97 MMOL/L (99-107); CREATININE 2.71 MG/DL (0.40-0.90); GLUCOSE 115 MG/DL (70-104); MAGNESIUM 2.5 MG/DL (1.5-2.4); POTASSIUM 4.9 MMOL/L (3.5-5.1); SODIUM 135 MMOL/L (135-145); TOTAL CARBON DIOXIDE 32.8 MMOL/L (24-32); TOTAL PROTEIN 6.8 G/DL (6.4-8.2); eCRCL 17 ML/MIN; eGFR 17 ML/MIN
[2024-06-12] MEDS: piperacillin/tazo 3.375gm/50ml 50 ML IV SCH (10:20)
[2024-06-12 10:47] LABS: BASOPHILS # (AUTO) 0.1 X10'3 (0-0.2); BASOPHILS % (AUTO) 0.7 % (0-1); EOSINOPHILS # (AUTO) 0.1 X10'3 (0-0.9); EOSINOPHILS % (AUTO) 1.6 % (0-6); HEMATOCRIT 28.8 % (35.0-45.0); HEMOGLOBIN 9.4 g/dl (12.0-16.0); LYMPHOCYTES # (AUTO) 0.6 X10'3 (1.1-4.8); LYMPHOCYTES % (AUTO) 7.4 % (21-51); MEAN CORPUSCULAR HGB CONC 32.7 g/dL (33.0-36.5); MEAN CORPUSCULAR VOLUME 91.6 FL (78-98); MEAN PLATELET VOLUME 7.7 FL (7.4-10.4); MONOCYTES # (AUTO) 0.5 X10'3 (0-0.9); MONOCYTES % (AUTO) 6.1 % (2-12); NEUTROPHILS # (AUTO) 7.4 X10'3 (1.8-7.7); NEUTROPHILS % (AUTO) 84.2 % (42-75); PLATELET COUNT 130 X10'3 (140-440); RED BLOOD COUNT 3.15 X10'6 (4.20-5.60); RED CELL DISTRIBUTION WIDTH 14.2 % (11.5-14.5); WHITE BLOOD COUNT 8.8 X10'3 (4.5-11.0)
[2024-06-12] MEDS ORDERED: FURO-150 PO (11:07)
[2024-06-12] MEDS ORDERED: CEPH500C2 PO (11:07)
[2024-06-12] MEDS ORDERED: LACT1CAP26 PO (11:07)
[2024-06-12] MEDS ORDERED: oxymetazoline 15 ML nasal spray NS SCH (20:00)
[2024-06-13] MEDS ORDERED: allopurinol 100mg tablet PO SCH (08:00)
== END 2024-06-12 14:30 | disposition home or self-care (01) | DRG 871 ==
LOC: ER 17:23 → ED HOLD 20:21 → ORTHO 4S 06-10 08:43
PROVIDERS: ADMIT Internal Medicine Critical Care Medicine; ATTEND Family Medicine
DX: A41.9 Sepsis, unspecified organism (principal); I50.43 Acute on chronic combined systolic (congestive) and diastolic (congestive) heart failure; J96.01 Acute respiratory failure with hypoxia; J18.9 Pneumonia, unspecified organism; L03.116 Cellulitis of left lower limb; L03.115 Cellulitis of right lower limb; I13.0 Hypertensive heart and chronic kidney disease with heart failure and stage 1 through stage 4 chronic kidney disease, or unspecified chronic kidney disease; E87.4 Mixed disorder of acid-base balance; N17.9 Acute kidney failure, unspecified; N39.0 Urinary tract infection, site not specified; Z20.822 Contact with and (suspected) exposure to COVID-19; J43.9 Emphysema, unspecified; I27.20 Pulmonary hypertension, unspecified; N18.30 Chronic kidney disease, stage 3 unspecified; E66.01 Morbid (severe) obesity due to excess calories; E03.9 Hypothyroidism, unspecified; E11.22 Type 2 diabetes mellitus with diabetic chronic kidney disease; G89.29 Other chronic pain; M54.9 Dorsalgia, unspecified; Z68.38 Body mass index [BMI] 38.0-38.9, adult
CPT/HCPCS: 36415; 36600; 71045; 71250; 80048; 80053; 81001; 82803; 82948; 83605; 83735; 83880; 84145; 84484; 85007; 85018; 85025; 86140; 87040; 87081; 87502; 87503; 87811; 93005; 94640; 94760; 96365; 96367; 97116; 97162; 99285; G0378; J0456; J0696; J1644; J1815; J1940; J2543; J7030; J7040